=== PATIENT | female | born 1945 | race Caucasian/White ===

== ENCOUNTER 2021-06-01 14:39 | Outpatient (CLI) | payer MEDICARE, BC | END 2021-06-01 14:40 | disposition home or self-care (01) | LOC: CSHMAMMO 14:39 | PROVIDERS: ATTEND Family Medicine | DX: Z12.31 Encounter for screening mammogram for malignant neoplasm of breast (principal) | CPT/HCPCS: 77063; 77067 ==

== ENCOUNTER 2021-12-15 12:00 | Emergency (ER) | payer MEDICARE, BC | END 2021-12-15 14:29 | disposition home or self-care (01) | LOC: CSHERS 12:00 | DX: M79.604 Pain in right leg (principal); E11.9 Type 2 diabetes mellitus without complications; E78.5 Hyperlipidemia, unspecified; I10 Essential (primary) hypertension | CPT/HCPCS: 93923 ==

== ENCOUNTER 2022-04-13 11:36 | Emergency (ER) | payer MEDICARE, BC ==
[2022-04-13 12:39] LABS: Bilirubin Neg (Negative); Blood, Urine 150 (Negative); Clarity Cloudy (Clear); Glucose, Urine (Dipstick) >=1000 mg/dL (Negative); Ketone, Urine 5 mg/dL (Negative); Leukocyte 500 (Negative); Nitrite Negative (Negative); Protein, Urine (Dipstick) 30 mg/dl (Neg-Trace); Specific Gravity, Urine 1.025 (1.002-1.036)
[2022-04-13 12:51] LABS: Bacteria/HPF Rare-Few HPF (None Seen); Squamous Epithelial 0-3 HPF (0-3); WBC/HPF Greater Than 50 HPF (0-3)
[2022-04-13 12:52] LABS: Calcium Oxalate Crystals 1+ HPF (None Seen)
== END 2022-04-13 13:00 | disposition home or self-care (01) ==
LOC: CSHERS 11:36
DX: N39.0 Urinary tract infection, site not specified (principal); E11.9 Type 2 diabetes mellitus without complications; E78.5 Hyperlipidemia, unspecified; I10 Essential (primary) hypertension
CPT/HCPCS: 81003; 81015; 99283

== ENCOUNTER 2022-11-29 16:17 | Emergency (ER) | payer MEDICARE, BC | END 2022-11-29 18:47 | disposition home or self-care (01) | LOC: CSHERS 16:17 | DX: T24.212A Burn of second degree of left thigh, initial encounter (principal); E78.5 Hyperlipidemia, unspecified; I10 Essential (primary) hypertension; X10.1XXA Contact with hot food, initial encounter; E11.40 Type 2 diabetes mellitus with diabetic neuropathy, unspecified | CPT/HCPCS: 99283 ==

== ENCOUNTER 2023-05-26 12:21 | Emergency (ER) | payer MEDICARE, BC ==
[2023-05-26 13:17] LABS: Bilirubin Neg (Negative); Blood, Urine 25 (Negative); Glucose, Urine (Dipstick) Normal (Negative); Ketone, Urine Negative (Negative); Leukocyte 500 (Negative); Nitrite Negative (Negative); Protein, Urine (Dipstick) 30 mg/dl (Neg-Trace); Urobilinogen Normal mg/dL (Less than 2)
[2023-05-26 13:27] LABS: Clarity Slightly Cloudy (Clear)
[2023-05-26 13:41] LABS: CAUTI Indications for Culture Pelvic or flank pain; WBC/HPF 21-50 HPF (0-3)
[2023-05-26 13:43] LABS: Bacteria/HPF 2+ HPF (None Seen); Mucous/LPF 1+ LPF (<2+); Squamous Epithelial 0-3 HPF (0-3); Transitional Epithelial 0-3 HPF (None Seen)
[2023-05-26 13:45] LABS: Urine Culture Reflex Yes Yes
== END 2023-05-26 13:10 | disposition home or self-care (01) ==
LOC: CSHERS 12:21
DX: N39.0 Urinary tract infection, site not specified (principal); E11.9 Type 2 diabetes mellitus without complications; E78.5 Hyperlipidemia, unspecified; I10 Essential (primary) hypertension
CPT/HCPCS: 81001; 87077; 87086; 87186; 99283

== ENCOUNTER 2023-07-05 13:08 | Emergency (ER) | payer MEDICARE, BC ==
[2023-07-05 14:07] LABS: Bilirubin Neg (Negative); Blood, Urine 50 (Negative); Clarity Cloudy (Clear); Glucose, Urine (Dipstick) 100 mg/dL (Negative); Ketone, Urine 5 mg/dL (Negative); Leukocyte 500 (Negative); Nitrite Negative (Negative); Protein, Urine (Dipstick) 30 mg/dl (Neg-Trace); Specific Gravity, Urine 1.015 (1.005-1.030); Urobilinogen Normal mg/dL (Less than 2); pH, Urine 6.5 (5.0-9.0)
[2023-07-05 14:29] LABS: Bacteria/HPF 3+ HPF (None Seen); CAUTI Indications for Culture Pelvic or flank pain; RBC/HPF 0-3 HPF (0-3); Squamous Epithelial 0-3 HPF (0-3); WBC/HPF 21-50 HPF (0-3)
[2023-07-05 14:30] LABS: Urine Culture Reflex Yes Yes
[2023-07-05 15:08] LABS: #Basophils 0.1 10x3/uL (0.0-0.2); #Eosinphils 0.2 10x3/uL (0.0-0.5); #Monocytes 0.9 10x3/uL (0.0-1.1); #Neutrophils 8.9 10x3/uL (1.5-8.4); %Basophils 0.6 % (0.0-2.0); %Eosinophils 1.5 % (0.0-6.0); %Lymphocytes 15.4 % (18.0-47.0); %Monocytes 7.8 % (0.0-10.0); %Neutrophils 74.4 % (40.0-75.0); Hematocrit 37.9 % (34.9-44.5); Hemoglobin 12.6 g/dL (12.0-15.5); Mean Corpuscular HGB CONC 33.2 g/dL (32.0-36.0); Mean Corpuscular Hemoglobin 31.7 pg (27.0-33.0); Mean Corpuscular Volume 95.2 fl (81.6-98.3); Mean Platelet Volume 11.1 fl (7.4-10.4); Platelet Count 347 10x3/uL (150-450); RBC Distribution Width 13.2 % (11.5-14.5); Red Blood Cell (RBC) Count 3.98 10x6/uL (3.90-5.03)
[2023-07-05] MEDS ORDERED: Ciprofloxacin 500 MG TAB PO SCH (15:45)
[2023-07-05 15:49] LABS: ALT (SGPT) 24 U/L (8-55); AST (SGOT) 24 U/L (5-34); Albumin 3.7 g/dL (3.4-4.8); Alkaline Phosphatase 110 U/L (40-110); Anion Gap 14 mmol/L (10-20); BUN (Urea Nitrogen) 22 mg/dL (9.8-20.1); Bilirubin, Total 0.5 mg/dL (0.2-1.2); Calc. Creatinine Clearance 0 mL/min (70-130); Calcium 9.5 mg/dL (7.8-10.44); Carbon Dioxide 23 mmol/L (23-31); Chloride 103 mmol/L (98-107); Estimated GFR 68; Globulin 3.3 g/dL (2.4-3.5); Glucose 216 mg/dL (83-110); Sodium 136 mmol/L (136-145)
== END 2023-07-05 15:54 | disposition home or self-care (01) ==
LOC: CSHERS 13:08
DX: N39.0 Urinary tract infection, site not specified (principal); I10 Essential (primary) hypertension; E11.40 Type 2 diabetes mellitus with diabetic neuropathy, unspecified
CPT/HCPCS: 80053; 81001; 83605; 85025; 87077; 87086; 87186; 99283

== ENCOUNTER 2023-10-06 10:14 | Outpatient (CLI) | payer MEDICARE, BC ==
[2023-10-06] MEDS ORDERED: Iopamidol 300 61% 100 ML VIAL FS ONE (13:19)
== END 2023-10-06 10:15 | disposition home or self-care (01) ==
LOC: CSHCT 10:14
PROVIDERS: ATTEND Psychiatry & Neurology Neurology
DX: G70.00 Myasthenia gravis without (acute) exacerbation (principal)
CPT/HCPCS: 71270

== ENCOUNTER 2023-12-04 10:06 | Inpatient (IN) | payer MEDICARE, BC ==
[2023-12-04] MEDS ORDERED: Acetaminophen 325 MG TAB PO PRN (10:52)
[2023-12-04] MEDS ORDERED: HYDROcodone/Acetaminophen 5/325 mg Tablet PO PRN (10:52)
[2023-12-04] MEDS: Privigen 10 GM, Privigen 20 GM in Admixture Fee 1 EACH IVPB SCH (11:02)
[2023-12-04 11:21] LABS: #Eosinphils 0.17 10x3/uL (0.0-0.5); #Monocytes 0.99 10x3/uL (0.0-1.1); #Neutrophils 5.74 10x3/uL (1.5-8.4); %Basophils 1.1 % (0.0-2.0); %Eosinophils 1.9 % (0.0-6.0); %Lymphocytes 21.3 % (18.0-47.0); %Monocytes 11.1 % (0.0-10.0); %Neutrophils 64.3 % (40.0-75.0); Hematocrit 36.7 % (34.9-44.5); Hemoglobin 12.6 g/dL (12.0-15.5); Mean Corpuscular HGB CONC 34.3 g/dL (32.0-36.0); Mean Corpuscular Hemoglobin 32.8 pg (27.0-33.0); Mean Corpuscular Volume 95.6 fl (81.6-98.3); Mean Platelet Volume 10.7 fl (7.4-10.4); Platelet Count 333 10x3/uL (150-450); RBC Distribution Width 13.6 % (11.5-14.5); Red Blood Cell (RBC) Count 3.84 10x6/uL (3.90-5.03); White Blood Cell (WBC) Count 8.9 10x3/uL (3.5-10.5)
[2023-12-04 11:38] LABS: ALT (SGPT) 38 U/L (8-55); AST (SGOT) 40 U/L (5-34); Albumin 3.6 g/dL (3.4-4.8); Alkaline Phosphatase 110 U/L (40-110); Anion Gap 11 mmol/L (10-20); BUN (Urea Nitrogen) 21 mg/dL (9.8-20.1); Bilirubin, Total 0.9 mg/dL (0.2-1.2); Calc. Creatinine Clearance 0 mL/min (70-130); Calcium 9.5 mg/dL (7.8-10.44); Carbon Dioxide 27 mmol/L (23-31); Chloride 105 mmol/L (98-107); Estimated GFR 64; Globulin 3.7 g/dL (2.4-3.5); Glucose 138 mg/dL (83-110); Protein, Total 7.3 g/dL (5.8-8.1); Sodium 139 mmol/L (136-145)
[2023-12-04] MEDS ORDERED: Electrolyte Replacement Protocol 1 EACH FS PRN (13:24)
[2023-12-04] MEDS ORDERED: Glucagon 1 MG/ML KIT IM PRN (15:07)
[2023-12-04] MEDS ORDERED: Dextrose 50% Abboject 50 ML SYRINGE SLOW IVP PRN (15:07)
[2023-12-04] MEDS ORDERED: Dextrose 5% in Water 1,000 ML IV PRN (15:07)
[2023-12-04 16:06] VITALS: BMI 27.6
[2023-12-04 16:23] LABS: Bilirubin Neg (Negative); Blood, Urine Negative (Negative); Clarity Clear (Clear); Glucose, Urine (Dipstick) Normal (Negative); Ketone, Urine Negative (Negative); Leukocyte 25 (Negative); Nitrite Negative (Negative); Protein, Urine (Dipstick) Negative (Neg-Trace); Urobilinogen Normal mg/dL (Less than 2)
[2023-12-04 16:37] LABS: Bacteria/HPF Rare-Few HPF (None Seen); RBC/HPF 0-3 HPF (0-3); Squamous Epithelial 0-3 HPF (0-3); WBC/HPF 0-3 HPF (0-3)
[2023-12-04] MEDS: hydrALAZINE 20 MG/ML VIAL SLOW IVP PRN (18:42)
[2023-12-04] MEDS: Atorvastatin Calcium 40 MG TAB PO SCH (21:01)
[2023-12-04] MEDS: Amitriptyline HCl 10 MG TAB PO SCH (21:11)
[2023-12-04] MEDS: HumaLOG 300 UNITS/3 ML VIAL SC PRN (21:18)
[2023-12-05 03:17] LABS: #Eosinphils 0.09 10x3/uL (0.0-0.5); #Monocytes 0.85 10x3/uL (0.0-1.1); #Neutrophils 7.68 10x3/uL (1.5-8.4); %Basophils 0.9 % (0.0-2.0); %Eosinophils 0.8 % (0.0-6.0); %Lymphocytes 17.7 % (18.0-47.0); %Neutrophils 72.2 % (40.0-75.0); Hematocrit 38.7 % (34.9-44.5); Hemoglobin 13.2 g/dL (12.0-15.5); Mean Corpuscular HGB CONC 34.1 g/dL (32.0-36.0); Mean Corpuscular Hemoglobin 32.6 pg (27.0-33.0); Mean Corpuscular Volume 95.6 fl (81.6-98.3); Mean Platelet Volume 11.1 fl (7.4-10.4); Platelet Count 328 10x3/uL (150-450); RBC Distribution Width 13.8 % (11.5-14.5); Red Blood Cell (RBC) Count 4.05 10x6/uL (3.90-5.03); White Blood Cell (WBC) Count 10.7 10x3/uL (3.5-10.5)
[2023-12-05 03:26] LABS: Anion Gap 15 mmol/L (10-20); BUN (Urea Nitrogen) 17 mg/dL (9.8-20.1); Calc. Creatinine Clearance 77 mL/min (70-130); Calcium 9.4 mg/dL (7.8-10.44); Carbon Dioxide 20 mmol/L (23-31); Chloride 108 mmol/L (98-107); Estimated GFR 76; Glucose 143 mg/dL (83-110); Sodium 139 mmol/L (136-145)
[2023-12-05] MEDS: Ondansetron PF 4 MG/2 ML Vial IVP PRN (05:01)
[2023-12-05] MEDS: Lisinopril 5 MG TAB PO SCH (08:03)
[2023-12-05] MEDS: Levothyroxine Sodium 100 MCG TAB PO SCH (08:03)
[2023-12-05] MEDS: Enoxaparin 30 MG (0.3 mL) SYRINGE SC SCH (08:04)
[2023-12-05] MEDS: Pyridostigmine Bromide IR 60 MG TAB PO SCH (08:04)
[2023-12-05] MEDS: Lantus 1000 UNITS/10 ML VIAL SC SCH (08:05)
[2023-12-05] MEDS: Ezetimibe 10 MG TAB PO SCH (08:06)
[2023-12-05] MEDS: Privigen 10 GM, Privigen 20 GM in Admixture Fee 1 EACH IVPB SCH (10:44)
[2023-12-06 08:07] LABS: #Basophils 0.07 10x3/uL (0.0-0.2); #Eosinphils 0.25 10x3/uL (0.0-0.5); #Monocytes 0.64 10x3/uL (0.0-1.1); #Neutrophils 3.98 10x3/uL (1.5-8.4); %Eosinophils 3.4 % (0.0-6.0); %Lymphocytes 32.5 % (18.0-47.0); %Monocytes 8.7 % (0.0-10.0); %Neutrophils 54.1 % (40.0-75.0); Hemoglobin 13.1 g/dL (12.0-15.5); Mean Corpuscular HGB CONC 33.6 g/dL (32.0-36.0); Mean Corpuscular Hemoglobin 32.4 pg (27.0-33.0); Mean Corpuscular Volume 96.5 fl (81.6-98.3); Mean Platelet Volume 10.9 fl (7.4-10.4); Platelet Count 321 10x3/uL (150-450); Red Blood Cell (RBC) Count 4.04 10x6/uL (3.90-5.03); White Blood Cell (WBC) Count 7.4 10x3/uL (3.5-10.5)
[2023-12-06 08:20] LABS: Anion Gap 13 mmol/L (10-20); BUN (Urea Nitrogen) 14 mg/dL (9.8-20.1); Calc. Creatinine Clearance 73 mL/min (70-130); Calcium 9.8 mg/dL (7.8-10.44); Carbon Dioxide 24 mmol/L (23-31); Chloride 106 mmol/L (98-107); Estimated GFR 71; Glucose 130 mg/dL (83-110); Potassium 3.9 mmol/L (3.5-5.1); Sodium 139 mmol/L (136-145)
[2023-12-07 03:44] LABS: Anion Gap 12 mmol/L (10-20); BUN (Urea Nitrogen) 13 mg/dL (9.8-20.1); Calc. Creatinine Clearance 76 mL/min (70-130); Calcium 9.1 mg/dL (7.8-10.44); Carbon Dioxide 25 mmol/L (23-31); Chloride 105 mmol/L (98-107); Estimated GFR 74; Glucose 125 mg/dL (83-110); Sodium 138 mmol/L (136-145)
[2023-12-07] MEDS: Artificial Tear Sol 15 ML BOT L EYE SCH (11:35)
[2023-12-08] MEDS: Enoxaparin 40 MG (0.4 mL) SYRINGE SC SCH (08:15)
[2023-12-08 20:03] VITALS: TEMP 98.1
[2023-12-09 15:13] VITALS: BP 147/78
== END 2023-12-09 16:00 | disposition home or self-care (01) | DRG 57 ==
LOC: CSHERS 10:06 → CSHIMCU 10:43
PROVIDERS: ADMIT Internal Medicine; ATTEND Family Medicine
DX: G70.01 Myasthenia gravis with (acute) exacerbation (principal); I25.10 Atherosclerotic heart disease of native coronary artery without angina pectoris; E78.5 Hyperlipidemia, unspecified; I10 Essential (primary) hypertension; E11.42 Type 2 diabetes mellitus with diabetic polyneuropathy; F51.04 Psychophysiologic insomnia; E03.9 Hypothyroidism, unspecified; H04.122 Dry eye syndrome of left lacrimal gland; Z88.2 Allergy status to sulfonamides; Z79.899 Other long term (current) drug therapy; Z79.890 Hormone replacement therapy; Z79.4 Long term (current) use of insulin; Z90.89 Acquired absence of other organs; Z90.49 Acquired absence of other specified parts of digestive tract
CPT/HCPCS: 36415; 36416; 71045; 80048; 80053; 81001; 85025; 93005; 94150; 96365; J0360; J1459; J1650; J1815; J2405

== ENCOUNTER → 2023-12-26 | Emergency (ER) | payer MEDICARE, BC ==
[2023-12-26 12:12] LABS: Hematocrit 37.2 % (34.9-44.5); Hemoglobin 12.6 g/dL (12.0-15.5); Mean Corpuscular HGB CONC 33.9 g/dL (32.0-36.0); Mean Corpuscular Hemoglobin 32.3 pg (27.0-33.0); Mean Corpuscular Volume 95.4 fl (81.6-98.3); Mean Platelet Volume 10.7 fl (7.4-10.4); Platelet Count 361 10x3/uL (150-450); RBC Distribution Width 13.5 % (11.5-14.5); White Blood Cell (WBC) Count 7.5 10x3/uL (3.5-10.5)
[2023-12-26 12:35] LABS: ALT (SGPT) 36 U/L (8-55); AST (SGOT) 33 U/L (5-34); Albumin 3.5 g/dL (3.4-4.8); Alkaline Phosphatase 108 U/L (40-110); Anion Gap 14 mmol/L (10-20); BUN (Urea Nitrogen) 24 mg/dL (9.8-20.1); Bilirubin, Total 0.7 mg/dL (0.2-1.2); Calc. Creatinine Clearance 0 mL/min (70-130); Calcium 9.5 mg/dL (7.8-10.44); Carbon Dioxide 22 mmol/L (23-31); Chloride 108 mmol/L (98-107); Estimated GFR 73; Globulin 4.1 g/dL (2.4-3.5); Glucose 122 mg/dL (83-110); Potassium 3.9 mmol/L (3.5-5.1); Protein, Total 7.6 g/dL (5.8-8.1); Sodium 140 mmol/L (136-145)
[2023-12-26 12:45] LABS: MDiff Complete? YES
[2023-12-26 16:17] LABS: Band 1 % (5-11); Eosinophils 2 % (0-10); Lymphocytes 23 % (21-51); Monocytes 6 % (0-10); Neutrophil 63 % (42-75); Reactive Lymphocytes 1 % (0-10)
[2023-12-26 16:19] LABS: Platelet Adequacy Comment Appears Adequate; RBC Morph Comment Within Normal Limits
== END ==
LOC: CSHERS 10:44
DX: G70.01 Myasthenia gravis with (acute) exacerbation (principal); E11.40 Type 2 diabetes mellitus with diabetic neuropathy, unspecified; I10 Essential (primary) hypertension
CPT/HCPCS: 71045; 80053; 83735; 85025; 93005

== ENCOUNTER 2024-01-20 13:42 | Outpatient (CLI) | payer MEDICARE, BC | END 2024-01-20 13:43 | disposition home or self-care (01) | LOC: CSHCT 13:42 | PROVIDERS: ATTEND Psychiatry & Neurology Neurology | DX: G70.9 Myoneural disorder, unspecified (principal); R59.0 Localized enlarged lymph nodes; N28.1 Cyst of kidney, acquired; Z90.81 Acquired absence of spleen; I67.89 Other cerebrovascular disease | CPT/HCPCS: 70553; 74178; 76377 ==

== ENCOUNTER 2024-07-31 09:03 | Outpatient (CLI) | payer MEDICARE, BC | END 2024-07-31 09:04 | disposition home or self-care (01) | LOC: CSHULT 09:03 | PROVIDERS: ATTEND Family Medicine | DX: R79.89 Other specified abnormal findings of blood chemistry (principal); Z90.49 Acquired absence of other specified parts of digestive tract; Z90.81 Acquired absence of spleen; N28.1 Cyst of kidney, acquired | CPT/HCPCS: 76700 ==

== ENCOUNTER 2024-10-08 13:52 | Emergency (ER) | payer MEDICARE, BC | END 2024-10-08 15:55 | disposition home or self-care (01) | LOC: CSHERS 13:52 | DX: S61.011A Laceration without foreign body of right thumb without damage to nail, initial encounter (principal); I10 Essential (primary) hypertension; E11.40 Type 2 diabetes mellitus with diabetic neuropathy, unspecified; Z55.0 Illiteracy and low-level literacy; W26.8XXA Contact with other sharp object(s), not elsewhere classified, initial encounter; Y93.89 Activity, other specified; Y92.89 Other specified places as the place of occurrence of the external cause | CPT/HCPCS: 12001; 99283 ==

== ENCOUNTER 2025-04-16 15:59 | Emergency (ER) | payer MEDICARE, BC ==
[2025-04-16 17:01] LABS: Glucose, Urine (Dipstick) Normal (Negative); Leukocyte 500 (Negative); Protein, Urine (Dipstick) 30 mg/dl (Neg-Trace); Specific Gravity, Urine 1.020 (1.005-1.030)
[2025-04-16 17:38] LABS: CAUTI Indications for Culture Pelvic or flank pain; RBC/HPF 0-3 HPF (0-3)
[2025-04-16 17:40] LABS: Bacteria/HPF 1+ HPF (None Seen); Yeast-Budding Rare HPF (None Seen)
[2025-04-16 17:42] LABS: Urine Culture Reflex Yes Yes
== END 2025-04-16 17:35 | disposition home or self-care (01) ==
LOC: CSHERS 15:59
DX: N39.0 Urinary tract infection, site not specified (principal); I10 Essential (primary) hypertension; E11.40 Type 2 diabetes mellitus with diabetic neuropathy, unspecified
CPT/HCPCS: 81001; 87077; 87086; 99283

== ENCOUNTER 2025-07-22 13:51 | Outpatient (CLI) | payer MEDICARE, BC | END 2025-07-22 13:52 | disposition home or self-care (01) | LOC: CSHMAMMO 13:51 | PROVIDERS: ATTEND Student in an Organized Health Care Education/Training Program | DX: N64.89 Other specified disorders of breast (principal) | CPT/HCPCS: 77065; G0279 ==